=== PATIENT | male | born 1955 | race African-American/Black ===

== ENCOUNTER 2020-06-07 14:33 | Inpatient (IN) | payer OTHER, SELFPAY ==
[2020-06-07 15:00] LABS: Hemoglobin 13.5 g/dL (14.0-18.0); Mean Corpuscular HGB CONC 33.2 g/dL (32.0-36.0); Mean Corpuscular Hemoglobin 30.5 pg (27.0-31.0); Mean Corpuscular Volume 92.1 fL (78.0-98.0); Mean Platelet Volume 8.2 fL (7.4-10.4); Platelet Count 249 thou/uL (130-400); RBC Distribution Width 11.7 % (11.5-14.5); Red Blood Cell (RBC) Count 4.41 mill/uL (4.70-6.10); White Blood Cell (WBC) Count 6.8 thou/uL (4.8-10.8)
[2020-06-07 15:19] LABS: ALT (SGPT) 9 U/L (8-55); AST (SGOT) 21 U/L (5-34); Alkaline Phosphatase 65 U/L (40-110); Anion Gap 12 mmol/L (10-20); BUN (Urea Nitrogen) 15 mg/dL (8.4-25.7); Bilirubin, Total 0.5 mg/dL (0.2-1.2); Calc. Creatinine Clearance 0 mL/min (70-130); Calcium 9.5 mg/dL (7.8-10.44); Carbon Dioxide 24 mmol/L (23-31); Chloride 106 mmol/L (98-107); Estimated GFR-MDRD 70; Globulin 3.9 g/dL (2.4-3.5); Glucose 104 mg/dL (80-115); Potassium 3.5 mmol/L (3.5-5.1); Protein, Total 7.9 g/dL (5.8-8.1); Sodium 138 mmol/L (136-145)
[2020-06-07 15:20] LABS: Band 1 % (5-11); Eosinophils 3 % (0-10); Lymphocytes 24 % (21-51); MDiff Complete? YES; Monocytes 5 % (0-10); Neutrophil 53 % (42-75); Platelet Morphology Comment Appears Adequate; RBC Morphology Normal; Reactive Lymphocytes 14 % (0-10)
--- NOTE | 2020-06-07 16:55 | PDOC.HHP ---
Hospitalist HPI - History of Present Illness left sided weakness History of Present Illness: This patient is a 64 YO male with a PMH of HTN who presents to ER today complaining of left sided weakness. Pt states that his symptoms began yesterday (06/06/2020) morning when he arrived at work, about 06:00. He noticed that he was feeling off balance during the work day. He felt that he was leaning more towards his left side. He also states that he wasn't able to lift his left leg as high as his right leg. He also had difficulty bathing using his left hand. When he came home his noticed a facial droop and some slurred speech. He did not have any numbness or tingling in his arms or legs. He resumed his blood pressure medications the morning of his symptoms, but doesn 't know the names of the medicines. This morning his symptoms came back to normal, including his weakness and slurred speech. In fact he states " I ran down the stairs this morning and did well." He came to the ER today due to his 's insistence to rule out a stroke. He denied dysphagia, headaches, nausea, vomiting, chest pain, shortness of breath, dizziness, lightheadedness, abdominal pain, nausea, vomiting ED Course: The patient presented to the ER with a blood pressure of 141. EKG showed normal sinus rhythm. CT revealed right sided lacunar infarct per ER attending, report is still pending. He was given aspirin 324 mg. Hospitalist ROS - Review of Systems Constitutional: reports: weakness. denies: fever, chills Eyes: denies: vision change ENT: reports: other (denies headache, odynophagia) Respiratory: reports: cough. denies: shortness of breath, sputum Cardiovascular: denies: chest pain, edema, light headedness Neurological: reports: weakness, incoordination Hospitalist History - Past Medical History Source: patient Cardiac: reports: HTN Pulmonary: reports: no pertinent history BANQUET DIRECTOR: reports: no pertinent history Psych: reports: Addictions (Alcohol, in remission) - Past Surgical History Past Surgical History: reports: no pertinent history - Family History Family History: reports: cancer (Hx of fatal NM, tracheal CA, bone CA, and cardiac disease), cardiac disorder - Social History Smoking Status: Never smoker Alcohol: reports: None (10 months remission, previous binge drinker) Drugs: reports: none Living Situation: With Family Other Social History: Was incarcerated from August to March for DWI. - Exam General Appearance: NAD, awake alert Eye: PERRL, anicteric sclera ENT: normocephalic atraumatic Heart: RRR, no murmur, no gallops, no rubs Respiratory: CTAB, no wheezes, no rales, no ronchi Gastrointestinal: soft, non-tender, non-distended Extremities: no edema Neurological: normal sensation to touch, no weakness (percieved weakness, but 5/ 5 strength bilaterally in both U&L extremities) Musculoskeletal: normal strength, no muscle wasting Psychiatric: normal behavior, A&O x 3 Hospitalist Results - Labs Result Diagrams: 06/07/20 14:44 06/07/20 14:44 Lab results: WBC 6.8 thou/uL (4.8-10.8) 06/07/20 14:44 Hgb 13.5 g/dL (14.0-18.0) L 06/07/20 14:44 Hct 40.6 % (42.0-52.0) L 06/07/20 14:44 MCV 92.1 fL (78.0-98.0) 06/07/20 14:44 Plt Count 249 thou/uL (130-400) 06/07/20 14:44 Band Neuts % (Manual) 1 % (5-11) L 06/07/20 14:44 Sodium 138 mmol/L (136-145) 06/07/20 14:44 Potassium 3.5 mmol/L (3.5-5.1) 06/07/20 14:44 Chloride 106 mmol/L (98-107) 06/07/20 14:44 Carbon Dioxide 24 mmol/L (23-31) 06/07/20 14:44 BUN 15 mg/dL (8.4-25.7) 06/07/20 14:44 Creatinine 1.07 mg/dL (0.7-1.3) 06/07/20 14:44 Glucose 104 mg/dL (80-115) 06/07/20 14:44 Calcium 9.5 mg/dL (7.8-10.44) 06/07/20 14:44 Total Bilirubin 0.5 mg/dL (0.2-1.2) 06/07/20 14:44 AST 21 U/L (5-34) 06/07/20 14:44 ALT 9 U/L (8-55) 06/07/20 14:44 Alkaline Phosphatase 65 U/L (40-110) 06/07/20 14:44 Serum Total Protein 7.9 g/dL (5.8-8.1) 06/07/20 14:44 Albumin 4.0 g/dL (3.4-4.8) 06/07/20 14:44 - EKG Interpretation EKG: normal sinus rhythm Hospitalist H&P A/P - Problem (1) Left-sided weakness Code(s): R53.1 - WEAKNESS Status: Acute - Plan Plan: This is a 64 year old male patient with a past medical history of hypertension who presented to the ER with left sided weakness, slurred speech, gait instability which resolved Acute stroke - per ER note, CT scan showed age indeterminate right sided lacunar infarct, report is still pending - will check ECHO, neuro consult in am - continue aspirin, statin - MRI brain in morning - monitor on telemetry - TSH, lipid profile, A1C in am Hypertension - blood pressure controlled - hydralazine IV prn for now. Verify home BP meds with his pharmacy in am Anemia - Hb 13, check folate/B12/ TSH DVT prophylaxis : ambulation Code status: full code
[2020-06-07] MEDS ORDERED: Aspirin Chewable 81 MG TAB ONE (17:02)
[2020-06-07] MEDS ORDERED: hydrALAZINE 20 MG/ML VIAL SLOW IVP PRN (20:45)
--- NOTE | 2020-06-07 20:50 | PDOC.FMACP ---
Advance Care Planning - Problem (1) Left-sided weakness Status: Acute Code(s): R53.1 - WEAKNESS - Note Summary: Advanced Care Planning was discussed. The diagnosis, prognosis and goals of care were discussed. Appropriate forms and documentation to accomplish the goals of care were discussed. All questions were answered. The Palliative Care Team will be engaged to assist with completion of any outstanding forms that are needed. Patient would like to be a full code Time Spent (mins): 40
[2020-06-07] MEDS ORDERED: Atorvastatin Calcium 40 MG TAB PO SCH (21:00)
--- NOTE | 2020-06-07 23:06 | ULT ---
BILATERAL CAROTID DUPLEX ULTRASOUND: HISTORY: Stroke, left-sided weakness and slurred speech TECHNIQUE: Grayscale, color-flow and spectral Doppler ultrasound imaging of the extracranial carotid artery syst ems was performed bilaterally. FINDINGS: Mild bilateral plaque formation is noted The peak systolic velocity in the right ICA measures 59 cm/s with an end-diastolic velocity of 28 cm/ s and a systolic ratio of 0.62. The peak systolic velocity in the left ICA measures 52 cm/s with an end-diastolic velocity of 26 cm/s and a systolic ratio of 0.59. Flow in both vertebral arteries remains antegrade. IMPRESSION: No evidence of hemodynamically significant stenosis
[2020-06-08 02:51] VITALS: BMI 24.0
[2020-06-08 05:38] LABS: Hemoglobin A1c 5.7 % (4.0-6.0)
[2020-06-08 06:13] LABS: Thyroid Stimulating Hormone 0.647 uIU/mL (0.35-4.94)
--- NOTE | 2020-06-08 07:07 | CT ---
CT HEAD WITHOUT IV CONTRAST COMPARISON: None HISTORY: Left-sided neurological deficits. Slurred speech. TECHNIQUE: Axial CT imaging at 5 mm intervals from vertex through skull base without contrast FINDINGS: Areas of diminished attenuation are seen in the periventricular white matter which are nonspecific bu t likely reflective of mild chronic small vessel ischemic changes. There are low-density foci seen in the right thalamus as well as in the right basal ganglia compatible with lacunar infarctions of in determinate age. A low-density focus is seen in the left claire likely due to tiny lacunar infarction also of indeterminate age. There is no evidence of an acute cord infarction, hemorrhage, mass effect, or midline shift. The ventricular system is normal in size, shape, and position. Minimal mucosal thickening is seen in the right maxillary antrum. Mastoid air cells are clear. Osseous structures appear intact. IMPRESSION: 1. Lacunar infarctions in the right thalamus and right basal ganglia of indeterminate age. MRI brain would be more sensitive study of choice for further evaluation. 2. No evidence of an acute cortical infarction or hemorrhage.
[2020-06-08] MEDS ORDERED: Aspirin 81 mg Enteric Coated Tablet PO SCH (09:00)
[2020-06-08 11:44] VITALS: TEMP 98.1
--- NOTE | 2020-06-08 12:09 | CON ---
NEUROLOGY CONSULTATION DATE OF CONSULTATION: 06/08/2020 REASON FOR CONSULTATION: Acute left-sided weakness. HISTORY OF PRESENT ILLNESS: Mr. Hitesh Mendoza is a 64-year-old male with medical history significant for hypertension, presented to the emergency room on 2019 with acute-onset left-sided weakness. Per the patient, symptoms started on 06/06/2020 morning when he arrived at work around 6:00. He noticed that he was unable to walk straight and he had balance issues. He was leaning more towards the left side and has difficulty using his left hand. When he came home, the also noted the left facial droop and slurred speech. He did not pay attention to his symptoms. He thought that the symptoms were due to high blood pressure and he resumed his blood pressure medications, which resolved his symptoms including slurred speech and left-sided weakness. The patient came to the emergency room yesterday because the wanted him to come to the emergency room to rule out stroke. The patient denies nausea, vomiting, headache, chest pain, dizziness, vertigo, lightheadedness, loss of vision or loss of consciousness associated with the episode. In the emergency room, he was given aspirin and CT scan was done, which showed right thalamic lacunar infarct. REVIEW OF SYSTEMS: All 10 systems were reviewed and were negative except the pertinent positive and negative mentioned in the HPI. PAST MEDICAL HISTORY: Hypertension; alcohol abuse, in remission. PAST SURGICAL HISTORY: None. FAMILY HISTORY: Significant for cancer, coronary artery disease, cardiac disease. SOCIAL HISTORY: and lives with his . Denies smoking, alcohol, illegal drug use. He was incarcerated from August to March for DWI. PHYSICAL EXAMINATION: VITAL SIGNS: Blood pressure 140/60, pulse 80, respiratory rate 18. CVS: Regular rate and rhythm. CHEST: Clear. ABDOMEN: Soft. NECK: Supple. NEUROLOGIC: Mental status, the patient is alert and awake and oriented to person, place, and time. Speech is clear. Recent and remote memory intact. Fund of knowledge is appropriate. Cranial nerves 2 through 12 intact. Motor, muscle tone and bulk are normal. Strength 5/5 bilaterally. Sensory intact. Cerebellar and finger-nose testing intact. Gait deferred due to the patient's safety reasons. DATA REVIEWED: I reviewed the labs, which is significant for hemoglobin 13.5 and hematocrit 40.6. Rest of the labs were essentially unremarkable. EKG reviewed, which showed normal sinus rhythm. Head CT reviewed, which shows age- indeterminate right-sided lacunar infarct. Lab results: WBC 6.8 thou/uL (4.8-10.8) 06/07/20 14:44 Hgb 13.5 g/dL (14.0-18.0) L 06/07/20 14:44 Hct 40.6 % (42.0-52.0) L 06/07/20 14:44 MCV 92.1 fL (78.0-98.0) 06/07/20 14:44 Plt Count 249 thou/uL (130-400) 06/07/20 14:44 Band Neuts % (Manual) 1 % (5-11) L 06/07/20 14:44 Sodium 138 mmol/L (136-145) 06/07/20 14:44 Potassium 3.5 mmol/L (3.5-5.1) 06/07/20 14:44 Chloride 106 mmol/L (98-107) 06/07/20 14:44 Carbon Dioxide 24 mmol/L (23-31) 06/07/20 14:44 BUN 15 mg/dL (8.4-25.7) 06/07/20 14:44 Creatinine 1.07 mg/dL (0.7-1.3) 06/07/20 14:44 Glucose 104 mg/dL (80-115) 06/07/20 14:44 Calcium 9.5 mg/dL (7.8-10.44) 06/07/20 14:44 Total Bilirubin 0.5 mg/dL (0.2-1.2) 06/07/20 14:44 AST 21 U/L (5-34) 06/07/20 14:44 ALT 9 U/L (8-55) 06/07/20 14:44 Alkaline Phosphatase 65 U/L (40-110) 06/07/20 14:44 Serum Total Protein 7.9 g/dL (5.8-8.1) 06/07/20 14:44 Albumin 4.0 g/dL (3.4-4.8) 06/07/20 14:44 ASSESSMENT AND PLAN: Mr. Hitesh Mendoza is a 64-year-old male with a history significant for hypertension and noncompliance to hypertensive medications, presented with an episode of left-sided weakness, slurred speech, and balance issues, which resolved after resuming the blood pressure medication, most likely transient ischemic attack. The head CT reviewed, which showed age-indeterminate right- sided lacunar infarct, which does not seem to be subacute. Consider recommend MRI of the brain to rule out acute intracranial process. 2D echo to evaluate for left ventricular ejection fraction. Continue aspirin and statin for secondary stroke prevention. Telemetry and neuro checks every 4 hours. Continue home medications. Monitor blood pressure and blood glucose. Continue medical management per Primary Team. We will plan and discuss with the patient and with the primary attending Dr. Flores. We will continue to follow. Thank you for the consult. Job ID: [id number] [facility]ITALAft[facility]
[2020-06-08 12:33] LABS: Hemoglobin 13.1 g/dL (14.0-18.0); Mean Corpuscular HGB CONC 33.6 g/dL (32.0-36.0); Mean Corpuscular Hemoglobin 30.7 pg (27.0-31.0); Mean Corpuscular Volume 91.4 fL (78.0-98.0); Mean Platelet Volume 8.5 fL (7.4-10.4); Platelet Count 231 thou/uL (130-400); RBC Distribution Width 11.6 % (11.5-14.5); Red Blood Cell (RBC) Count 4.27 mill/uL (4.70-6.10); White Blood Cell (WBC) Count 5.6 thou/uL (4.8-10.8)
--- NOTE | 2020-06-08 13:36 | MRI ---
BRAIN MRI WITHOUT IV CONTRAST: 06/08/20 HISTORY: Left sided weakness, slurred speech. FINDINGS: There are numerous small foci of T2 hyperintensity with associated restricted diffusion and abnormal low signal on ADC map in the right basal ganglia/thalamus. Evidence for numerous small focal areas of acute infarction. No mass or midline shift. There is some very mild sinus mucosal disease. Expected flow voids are present bilaterally. No evidence for major branch transcortical infarct. IMPRESSION: Numerous small acute lacunar type infarct changes involving the right thalamus and basal ganglia. Sin us mucosal changes. POS: OFF
[2020-06-08 14:30] LABS: SARS-CoV-2 MS2 Positive; SARS-CoV-2 N Gene Positive; SARS-CoV-2 S Gene Positive; SARS-CoV-2 by NAA DETECTED (NotDetected); SARS-CoV-2 orf1ab Positive
--- NOTE | 2020-06-08 15:35 | RAD ---
Portable chest: HISTORY: Covid positive COMPARISON: none FINDINGS: Lung alva are clear. Heart and mediastinum appear unremarkable. Vascularity is normal. Visualized osseous structures unremarkable. IMPRESSION: No acute finding
[2020-06-08 15:54] VITALS: BP 129/77
--- NOTE | 2020-06-09 03:10 | DIS ---
DATE OF ADMISSION: 06/07/2020 DATE OF DISCHARGE: 06/08/2020 DISCHARGE DIAGNOSES: 1. Acute stroke. 2. COVID positive, but asymptomatic. 3. Anemia. CONSULTATION: Neurology with Dr. Jeanette Ford. PROCEDURES: None. BRIEF HISTORY OF PRESENT ILLNESS: This is a 64-year-old male with a past medical history of hypertension, who presented to the emergency room complaining of left-sided weakness. He states that he fell off balance and was unable to lift his left leg as high. He also had a facial droop and slurred speech. His CT scan showed age-indeterminate right-sided lacunar infarct. He was admitted for further workup. HOSPITAL COURSE: Acute lacunar infarct in the right thalamus: The patient had an MRI of brain, which showed age-indeterminate right-sided lacunar infarct. Echo was done which showed no EF and normal thrombus. Carotid Doppler showed no significant stenosis. CT of the brain showed a lacunar infarct in the right thalamus and right basal ganglia. The patient was started on aspirin and statin. He was seen by Neurology. He was seen by Physical Therapy, who felt that the patient did not need anymore physical therapy. He should follow up with his PCP in a week. COVID positive: The patient was tested upon admission and incidentally noted to be COVID positive. The patient has no shortness of breath, cough, fevers, or chills. He was advised to quarantine at home for at least 4 days to monitor for symptoms and if the patient develops fevers or any symptoms, to quarantine for 10-14 days. Test results were also discussed with the , who was also advised to stay home from work and consider getting tested after 4-5 days. The patient states that he was recently released from [facility] in March. Anemia: The patient had hemoglobin of 13.1. His B12 and folate were normal. He did have a chest x-ray, which was normal. He was discharged with dexamethasone that he can take p.r.n. if he feels short of breath or has any wheezing. Prediabetes: The patient's hemoglobin A1c was 5.7. His BMI is 24. He was advised to lose weight and watch sugar intake. DISCHARGE PHYSICAL EXAMINATION: VITAL SIGNS: Temperature 98.1, heart rate 96, respiratory rate 18, O2 saturation 96% on room air, heart rate 64, and blood pressure 129/77. GENERAL: The patient is alert, awake, and oriented x3. CVS: Regular rate and rhythm with no murmurs, rubs, or gallops. LUNGS: Clear to auscultation bilaterally. ABDOMEN: Positive bowel sounds, soft, nontender, nondistended. EXTREMITIES: No edema. NEUROLOGIC: The patient's cranial nerves 2 through 12 are intact. He does have slight deviation of his tongue to the left side. He is very hesitant in showing his teeth for unclear reason. He has 5/5 strength in his upper extremities. He has 5/5 strength in his lower extremities. Muscle tone, motor and bulk are normal. He has normal finger-nose testing. His gait is normal. LABORATORY DATA: CBC 06/08: White count 5.6, hemoglobin 13.1, hematocrit 39.0, and platelet count 231. BMP 06/07: Normal. LFTs 06/07: Normal. Lipid panel 06/08: Negative. Vitamin B12: 284. Folate: 12.3. TSH: 0.64. COVID PCR 06/07: Negative. IMAGING DATA: CT brain 06/07: Shows lacunar infarction in the right thalamus and right basal ganglia of indeterminate age. No evidence of an acute infarction. Carotid Dopplers 06/07: No evidence of significant stenosis. Chest x-ray 06/08: Shows no acute findings. MRI brain 06/08: Shows numerous small acute lacunar infarct changes involving the right thalamus and basal ganglia. ECHO: EF 55-60%, mild MR and mild TR DISCHARGE CONDITION: Stable. ACTIVITY: As tolerated. DIET: Heart healthy diet. DISCHARGE MEDICATIONS: 1. Aspirin 81 mg p.o. daily. 2. Atorvastatin 40 mg p.o. at bedtime. 3. Dexamethasone 6 mg p.o. daily. DISCHARGE INSTRUCTIONS: The patient is to follow up with his PCP in a week. He should quarantine for at least 4 days. Monitor for any fever since he is COVID positive. Come back to the hospital if he has any shortness of breath, hypoxia , and take dexamethasone as needed. Job ID: [id number] [facility]
== END 2020-06-08 18:23 | disposition home or self-care (01) | DRG 64 ==
LOC: ERS 14:33 → OBSVTOIN 16:57 → 2SE 16:57
PROVIDERS: ADMIT Internal Medicine; ATTEND Internal Medicine
PROC: 8E0ZXY6 Isolation (ICD-10-PCS; principal; 2020-06-08)
DX: I63.81 Other cerebral infarction due to occlusion or stenosis of small artery (principal); U07.1 COVID-19; G81.94 Hemiplegia, unspecified affecting left nondominant side; D64.9 Anemia, unspecified; R73.03 Prediabetes; R29.810 Facial weakness; R47.81 Slurred speech; R29.702 NIHSS score 2; R40.2362 Coma scale, best motor response, obeys commands, at arrival to emergency department; R40.2142 Coma scale, eyes open, spontaneous, at arrival to emergency department; R40.2252 Coma scale, best verbal response, oriented, at arrival to emergency department; F10.11 Alcohol abuse, in remission; Z91.14 Patient's other noncompliance with medication regimen; Z79.899 Other long term (current) drug therapy
CPT/HCPCS: 36415; 36416; 70450; 70551; 71045; 80053; 80061; 82607; 82746; 83036; 84443; 85025; 85027; 87635; 93005; 93306; 93880; U0003

== ENCOUNTER 2020-09-11 14:27 | Emergency (ER) | payer OTHER, SELFPAY ==
[2020-09-11 15:20] LABS: #Eosinphils 0.1 thou/uL (0.0-0.7); #Lymphocytes 1.6 thou/uL (1.20-3.40); #Monocytes 0.8 thou/uL (0.11-0.59); #Neutrophils 5.2 thou/uL (1.40-6.50); %Basophils 0.5 % (0.0-1.0); %Eosinophils 0.9 % (0.0-10.0); %Lymphocytes 20.5 % (21.0-51.0); %Monocytes 9.9 % (0.0-10.0); %Neutrophils 68.1 % (42.0-75.0); Hemoglobin 14.3 g/dL (14.0-18.0); Mean Corpuscular HGB CONC 35.2 g/dL (32.0-36.0); Mean Corpuscular Volume 91.1 fL (78.0-98.0); Mean Platelet Volume 8.3 fL (7.4-10.4); Platelet Count 178 thou/uL (130-400); RBC Distribution Width 11.8 % (11.5-14.5); Red Blood Cell (RBC) Count 4.46 mill/uL (4.70-6.10); White Blood Cell (WBC) Count 7.6 thou/uL (4.8-10.8)
[2020-09-11] MEDS ORDERED: Lorazepam 2 MG/ML VIAL ONE (15:31)
[2020-09-11] MEDS ORDERED: Ondansetron PF 4 MG/2 ML Vial ONE (15:32)
--- NOTE | 2020-09-11 15:37 | RAD ---
RADIOGRAPH CHEST 2 VIEW: DATE: 09/11/2020 HISTORY: 65-year-old male with dyspnea. Rule out aspirated foreign body. FINDINGS: The thoracic aorta is tortuous and ectatic. There is no evidence of airspace density, pulmonary edema , or pneumothorax. There is no cardiomegaly or pleural effusion. IMPRESSION: 1) No acute cardiopulmonary findings. 2) ectasia of thoracic aorta. 3) no radiopaque foreign body visualized.
[2020-09-11 15:44] LABS: ALT (SGPT) 13 U/L (8-55); AST (SGOT) 22 U/L (5-34); Albumin 4.3 g/dL (3.4-4.8); Alkaline Phosphatase 71 U/L (40-110); Anion Gap 13 mmol/L (10-20); BUN (Urea Nitrogen) 15 mg/dL (8.4-25.7); Bilirubin, Total 0.8 mg/dL (0.2-1.2); Calc. Creatinine Clearance 0 mL/min (70-130); Calcium 9.9 mg/dL (7.8-10.44); Carbon Dioxide 28 mmol/L (23-31); Chloride 93 mmol/L (98-107); Estimated GFR-MDRD 72; Globulin 3.6 g/dL (2.4-3.5); Glucose 123 mg/dL (80-115); Potassium 4.2 mmol/L (3.5-5.1); Protein, Total 7.9 g/dL (5.8-8.1); Sodium 130 mmol/L (136-145)
--- NOTE | 2020-09-11 16:25 | RAD ---
Radiograph neck soft tissues 2 views: 09/11/2020 HISTORY: 65-year-old male with dysphagia. Dyspnea. Suspected foreign body. FINDINGS: There are small and moderate sized endplate marginal osteophytes protruding into the prevertebral spa ce at all levels from C3-4 through C6-7. The largest of these are at C5-6 and C6-7, and they probably at least mildly encroach upon the hypopharynx. It is uncertain whether or not this causes th e dysphagia. There is no prevertebral soft tissue swelling. No soft tissue swelling of the supraglottic larynx. The supraglottic and oropharyngeal airway are distended. Visualized upper portio n of trachea is grossly patent. No radiopaque foreign body is visualized. No subcutaneous emphysema. IMPRESSION: No radiopaque foreign body.
== END 2020-09-11 16:12 | disposition home or self-care (01) ==
LOC: ERS 14:27
DX: R09.89 Other specified symptoms and signs involving the circulatory and respiratory systems (principal); I10 Essential (primary) hypertension; Z86.73 Personal history of transient ischemic attack (TIA), and cerebral infarction without residual deficits; Z79.899 Other long term (current) drug therapy
CPT/HCPCS: 70360; 71046; 80053; 84484; 85025; 93005; 96374; 96375; J1610; J2060; J2405

== ENCOUNTER 2020-11-25 19:32 | Emergency (ER) | payer OTHER, SELFPAY ==
[2020-11-25] MEDS ORDERED: Lorazepam 2 MG/ML VIAL ONE (20:08)
--- NOTE | 2020-11-25 20:30 | RAD ---
SOFT TISSUE VIEWS OF THE NECK TWO VIEWS: 11/25/20 HISTORY: Sensation of something stuck in throat. Retropharyngeal soft tissues are normal. Epiglottis is normal. No airway narrowing. Arthritic changes of the spine are seen. IMPRESSION: No acute findings. POS: OFF
== END 2020-11-25 21:15 | disposition home or self-care (01) ==
LOC: ERS 19:32
DX: F45.8 Other somatoform disorders (principal); I10 Essential (primary) hypertension; I25.10 Atherosclerotic heart disease of native coronary artery without angina pectoris
CPT/HCPCS: 70360; 96374; J2060

== ENCOUNTER 2020-12-10 10:00 | Outpatient (CLI) | payer OTHER ==
--- NOTE | 2020-12-10 18:33 | RAD ---
Modified barium swallow with speech therapist: 12/10/2020 HISTORY: 65-year-old male with R 13.10, I 69.391 dysphagia following stroke FINDINGS: Laryngeal elevation, hyoid protraction, and epiglottic inversion, all adequate. Puree: Normal swallows on some. Minimal residue coating piriform sinuses and vallecula on others, but otherwise normal. Solids: Normal swallow On one swallow of thin liquid, there is penetration, plus thin coating of mucosal surface of vallecul a and piriform sinuses, but not on other swallows of thin liquid. No aspiration. Malone: No major dysphagia IMPRESSION: 1. Single episode of penetration with thin liquid. 2. Otherwise no other major dysphagia
== END 2020-12-10 10:01 | disposition home or self-care (01) ==
PROVIDERS: ATTEND Family Medicine
DX: I69.391 Dysphagia following cerebral infarction (principal); R13.10 Dysphagia, unspecified
CPT/HCPCS: 74230